=== PATIENT | female | born 1985 | race Caucasian/White ===

== ENCOUNTER 2019-03-30 15:19 | Emergency (ER) | payer BC ==
--- OUTSIDE RECORDS SUMMARY | 2019-03-30 15:25 | XMS REPORT | Continuity of Care Document ---
:1985 External Reference #:[id number] Author Name Sapna Lee PNP-BC, CHRIS, Ibclc Address [facility] [address] [place] [address] Care Team Providers Name Role Phone Sapna Lee PNP-BC, CHRIS, Ibgabriele Care Team Information Threat Analyst Unavailable Sapna Lee PNP-BC, CHRIS, Ibclc Primary Care Physician Unavailable Payers Date Identification Numbers Payment Provider Subscriber Policy Number: [id number] [facility] Nisa Owen PayID: [id number] [address] [address] [place] [address] Expires: 2016 Policy Number: [id number] [employer] Nisa Owen PayID: [id number] [address] [place] [address] Problems Resolved Problems Provider Date Twin Ivon Tovar MD Onset: 12/20/2014 Resolved: 02/23/2015 Normal Ivon Tovar MD Onset: 08/23/2014 Resolved: 02/23/2015 Normal Ivon Tovar MD Onset: 08/23/2014 Resolved: 02/25/2015 Family History Date Family Member(s) Observation Comments Father Unknown Mother autoimmune disorder Social History Type Date Description Comments Sex Unknown Lives With Lives With Children Diet Healthy, Well Balanced Occupation Currently Working ETOH Use Occasionally consumes alcohol Tobacco Use Start: Unknown Patient has never smoked Smoking Status Reviewed: 03/20/19 Patient has never smoked Allergies, Adverse Reactions, Alerts Active Allergies Reaction Severity Comments Date Macrobid 12/16/2014 Cymbalta Moderate 07/05/2018 Medications Active Medications SIG Qnty Indications Ordering Provider Date Amoxicillin 1 by mouth twice 20tabs J01.90 Sapna Lee, 03/20/2019 875mg a day PNP-BC, [employer], Tablets Ibclc Sertraline HCL 1 by mouth every 90tabs F33.1 Sapna Lee, 12/17/2018 25mg day with 50mg PNP-BC, [employer], Tablets tablets Ibclc Sertraline HCL 1 by mouth every 90tabs F33.1 Sapna Lee, 10/22/2018 50mg day with the 25mg PNP-BC, [employer], Tablets Ibclc Flonase Allergy use 2 sprays in Unknown Relief each nostril in 50mcg/Act in the morning Suspension [place] Unknown 0.25-35mg-mcg Tablets Iron Slow Release 1 by mouth bid Unknown 143(45Fe) mg Tablets ER Magnesium 1 by mouth at Unknown 500mg bedtime Capsules Probiotic Daily 1 a day Unknown Capsules Vitamin B Complex 1 by mouth every Unknown day Tablets Vitamin D3 Super 1 by mouth every Unknown Strength day 2000Unit Capsules Zyrtec Allergy 1 tab by mouth 30tabs Clune, 10mg every night Jenniferleigh, Tablets [employer] History Medications Fluticasone Propionate 2 sprays each nare 48gm J30.9 Rosa, 12/17/2018 - once a day Sapna, 03/20/2019 50mcg/Act Suspension PNP-BC, [employer], Ibclc Meclizine HCL 1 by mouth three 30tabs H81.313 Rosa 08/15/2018 - 25mg times a day as Kari Alejo Tablets needed PNP-BC, [employer], Ibclc Gabapentin 1 by mouth at 30caps M79.7 Rosa 08/15/2018 - 100mg Capsules bedtime Sapna, 09/05/2018 PNP-BC, [employer], Ibclc Sertraline HCL 1 by mouth every 30tabs F33.1 Rosa 08/15/2018 - 25mg day Sapna, 09/05/2018 Tablets PNP-BC, [employer], Ibclc Sertraline HCL 1 by mouth every 30tabs F41.9 Rosa, 07/05/2018 - 25mg day Sapna, 07/05/2018 Tablets PNP-BC, [employer], Ibclc Amoxicillin/Clavulanat 1 by mouth twice a 20tabs J01.90 Rosa, 2017 - e Potassium day for 10 days Sapna, 07/15/2018 875-125mg PNP-BC, [employer], Tablets Ibclc Clonidine HCL take one tablet by 120tabs F41.9 Rosa, 07/05/2018 - 0.1mg mouth four times a Sapna, Unknown Tablets day as needed PNP-BC, [employer], maximum daily Ibclc dose=4 Cymbalta 1 by mouth every 60caps Rosa 06/28/2018 - 30mg Caps DR day for 1 week and Sapna, 07/05/2018 Part then 2 by mouth PNP-BC, [employer], each day Ibclc 5-HTP Tryptophan 1 a day Rosa, 06/14/2018 - 50mg Sapna 08/01/2018 Tablets PNP-BC, MANA[employer], Ibclc [employer] 06/14/2018 - 300mg Capsules Sapna, Unknown PNP-BC, MANA[employer], Ibclc Iron (Ferrous Sulfate) 1 by mouth every 30tabs Rosa, 05/30/2018 - day Sapna 07/05/2018 142(45Fe) mg Tablets PNP-BC, [employer], ER Ibclc Fluconazole one by mouth after 1tabs J01.90 Arvind, 12/13/2017 - 150mg Tablets completing [facility] 12/27/2017 antibiotics , [employer] Levofloxacin one by mouth every 5tabs J01.90 Arvind 12/13/2017 - 750mg day x 5 days [facility] 05/15/2018 Tablets , [employer] Trinessa Lo 1 by mouth every 28tabs [place] 01/13/2016 - day MD Ivon 12/13/2017 0.18/0.215/0.25 mg-25 mcg Tablets Nasonex 2 sprays 51gm [place] 01/13/2016 - 50mcg/Act intranasal twice a MD Ivon 05/15/2018 Suspension day No Active Medications Unknown 10/28/2015 - 10/28/2015 Ortho-Cyclen (28) 1 by mouth every 28tabs [place] 10/28/2015 - day MD Ivon 01/13/2016 0.25-35mg-mcg Tablets Diflucan Take 1 Tablet By 1tabs [place] 10/28/2015 - 150mg Tablets Mouth Once Prior MD Ivon 02/13/2016 To Menses No Active Medications La 02/23/2015 - MD Ivon 02/23/2015 No Active Medications La 02/23/2015 - MD Ivon 02/23/2015 No Active Medications Unknown 02/23/2015 - 02/23/2015 Work Nisa may return [place] 02/23/2015 - to work as of MD Ivon 02/23/2015 03/05/15 with no restrictions. No Active Medications Unknown 02/23/2015 - 02/23/2015 Work Nisa may return [place] 02/23/2015 - to work as of MD Ivon 02/23/2015 03/05/15 with no restrictions. No Active Medications Unknown 02/23/2015 - 02/23/2015 One Daily La 12/16/2014 - MD Ivon 02/23/2015 27-0.8mg Tablets Breast Pump breast pump for [place], 12/16/2014 - nursing mother of MD Ivon 02/23/2015 twins. Terconazole 1 applicator every 1units La 10/20/2014 - 0.4% Cream night at bedtime MD Ivon 02/23/2015 Terconazole 1 applicator every 1units La 10/20/2014 - 0.4% Cream night at bedtime MD Ivon 10/28/2015 Plus 1 by mouth every 30tabs La 08/19/2014 - 27-1mg day MD Ivon 02/23/2015 Tablets Plus 1 by mouth every 30tabs [place] 08/19/2014 - 27-1mg day MD Ivon 10/28/2015 Tablets Cyclobenzaprine HCL Franc, - 5mg MD Glo 08/15/2018 Tablets Immunizations CPT Code Status Date Vaccine Lot # [id number] Given 09/07/2018 Influenza Vaccine (Fluzone) Age 3 And Older [id number] Given 10/03/2016 Influenza Virus Vaccine Split Virus Use For Individual 3Yr Older Vital Signs Date Vital Result Comment 03/20/2019 11:00am BP Systolic 100 mmHg BP Diastolic 72 mmHg Heart Rate 86 /min Height 62.5 inches 5'2.50" Weight 204.50 lb BMI (Body Mass Index) 36.8 kg/m2 BSA (Body Surface Area) 1.94 m2 [place] body weight in kilograms 51 kg O2 % BldC Oximetry 97 % 12/17/2018 10:59am BP Systolic 104 mmHg BP Diastolic 64 mmHg Body Temperature 97.5 F Heart Rate 80 /min Respiratory Rate 18 /min Height 62.5 inches 5'2.50" Weight 198.00 lb BMI (Body Mass Index) 35.6 kg/m2 BSA (Body Surface Area) 1.91 m2 [place] body weight in kilograms 51 kg O2 % BldC Oximetry 98 % 09/05/2018 11:27am BP Systolic Sitting Left Arm 110 mmHg BP Diastolic Sitting Left Arm 72 mmHg Body Temperature 98.0 F Heart Rate 90 /min Respiratory Rate 12 /min Height 62.5 inches 5'2.50" Weight 198.00 lb BMI (Body Mass Index) 35.6 kg/m2 BSA (Body Surface Area) 1.91 m2 [place] body weight in kilograms 51 kg O2 % BldC Oximetry 96 % 08/15/2018 11:40am BP Systolic 124 mmHg BP Diastolic 70 mmHg Body Temperature 97.0 F Heart Rate 101 /min Weight 196.00 lb O2 % BldC Oximetry 98 % Pain Level 0 08/01/2018 11:26am BP Systolic Sitting Left Arm 108 mmHg BP Diastolic Sitting Left Arm 68 mmHg Body Temperature 97.8 F Heart Rate 88 /min Weight 199.00 lb O2 % BldC Oximetry 98 % 07/05/2018 3:12pm BP Systolic Sitting Right Arm 126 mmHg BP Diastolic Sitting Right Arm 76 mmHg Body Temperature 98.0 F Heart Rate 90 /min Respiratory Rate 22 /min Height 62 inches 5'2" Weight 202.00 lb BMI (Body Mass Index) 36.9 kg/m2 BSA (Body Surface Area) 1.92 m2 [place] body weight in kilograms 50 kg O2 % BldC Oximetry 98 % 06/14/2018 4:16pm BP Systolic 110 mmHg BP Diastolic 60 mmHg Body Temperature 98.6 F Heart Rate 90 /min Respiratory Rate 16 /min Height 62 inches 5'2" Weight 205.00 lb BMI (Body Mass Index) 37.5 kg/m2 BSA (Body Surface Area) 1.93 m2 [place] body weight in kilograms 50 kg O2 % BldC Oximetry 99 % 05/15/2018 3:27pm BP Systolic Sitting Left Arm 126 mmHg BP Diastolic Sitting Left Arm 78 mmHg Body Temperature 99.1 F Heart Rate 88 /min Height 63 inches 5'3" Weight 201.00 lb BMI (Body Mass Index) 35.6 kg/m2 BSA (Body Surface Area) 1.94 m2 [place] body weight in kilograms 52 kg 12/13/2017 10:59am BP Systolic Sitting Left Arm 120 mmHg BP Diastolic Sitting Left Arm 76 mmHg Body Temperature 100.2 F Heart Rate 80 /min Respiratory Rate 18 /min Height 61 inches 5'1" Weight 208.00 lb BMI (Body Mass Index) 39.3 kg/m2 BSA (Body Surface Area) 1.92 m2 [place] body weight in kilograms 48 kg 01/13/2016 6:09pm BP Systolic 126 mmHg BP Diastolic 74 mmHg Height 61 inches 5'1" Weight 206.00 lb BMI (Body Mass Index) 38.9 kg/m2 BSA (Body Surface Area) 1.91 m2 12/16/2015 11:41am Height 62.6 inches 5'2.60" Weight 204.00 lb BMI (Body Mass Index) 36.6 kg/m2 BSA (Body Surface Area) 1.94 m2 11/18/2015 11:00am Height 62.6 inches 5'2.60" Weight 207.00 lb BMI (Body Mass Index) 37.1 kg/m2 BSA (Body Surface Area) 1.95 m2 10/28/2015 10:43am BP Systolic 130 mmHg BP Diastolic 70 mmHg Height 62.6 inches 5'2.60" Weight 210.25 lb BMI (Body Mass Index) 37.7 kg/m2 BSA (Body Surface Area) 1.97 m2 Last Menstrual Period [id number] 02/23/2015 4:36pm BP Systolic 120 mmHg BP Diastolic 76 mmHg Height 62 inches 5'2" Weight 207.50 lb BMI (Body Mass Index) 37.9 kg/m2 BSA (Body Surface Area) 1.94 m2 Last Menstrual Period [id number] 12/30/2014 11:22am BP Systolic Sitting Left Arm 114 mmHg BP Diastolic Sitting Left Arm 70 mmHg Height 63 inches 5'3" Weight 247.00 lb BMI (Body Mass Index) 43.7 kg/m2 BSA (Body Surface Area) 2.12 m2 12/16/2014 11:17am BP Systolic Sitting Left Arm 116 mmHg BP Diastolic Sitting Left Arm 72 mmHg Height 62.5 inches 5'2.50" Weight 243.00 lb BMI (Body Mass Index) 43.7 kg/m2 BSA (Body Surface Area) 2.09 m2 12/16/2014 11:11am BP Systolic Sitting Left Arm 116 mmHg BP Diastolic Sitting Left Arm 72 mmHg Height 63.5 inches 5'3.50" Weight 244.00 lb BMI (Body Mass Index) 42.5 kg/m2 BSA (Body Surface Area) 2.12 m2 12/09/2014 1:25pm BP Systolic 118 mmHg BP Diastolic 70 mmHg Weight 240.00 lb 10/28/2014 9:45pm BP Systolic 98 mmHg BP Diastolic 72 mmHg Height 62.5 inches 5'2.50" Weight 234.00 lb 10/15/2014 6:26pm BP Systolic 104 mmHg BP Diastolic 78 mmHg Height 62.5 inches 5'2.50" Weight 230.00 lb 09/22/2014 7:21pm BP Systolic 106 mmHg BP Diastolic 70 mmHg Height 62.6 inches 5'2.60" Weight 228.00 lb 08/19/2014 7:19pm BP Systolic 118 mmHg BP Diastolic 78 mmHg Height 62.6 inches 5'2.60" Weight 224.00 lb Results Test Date Facility Test Result H/L Range Note CBC 03/20/2019 [facility] White Blood 8.2 K/uL Normal 3.1-10.7 1 W/Automated [address] Count Diff [place], [place] [id number] [phone] Red Blood Count 4.46 M/uL Normal 3.90-5.40 Hemoglobin 13.2 gm/dL Normal 11.6-15.8 Hematocrit 40.2 % Normal 36.0-46.1 Mean Cell Volume 90.1 fl Normal 80.9-99.0 Mean Corpuscular HGB 29.6 pg Normal 25.9-32.7 Mean Corpuscular HGB Conc 32.8 g/dL Normal 30.8-34.3 Platelet Count 453 K/uL High 155-360 Red Cell Distri Width SD 43.6 fl Normal 36-47 Red Cell Distri Width %CV 13.2 % Normal 11.7-14.4 Mean Platelet Volume 10.3 fl Normal 8.9-12.4 Neut% 67.4 % Normal 40.4-72.8 Lymph % 25.7 % Normal 20.0-42.0 [place] % 3.5 % Low 4.3-13.2 Eo% 2.3 % Normal 0.0-6.6 Bas% 0.6 % Normal 0.0-1.1 Immature Grans 0.5 % Normal 0.0-5.0 NRBC % 0.0 /100WBC < 10/ 100 WBC Neut# 5.53 K/uL Normal 1.8-7.0 Lymph # 2.11 K/uL Normal 1.0-4.0 [place] # 0.29 K/uL Low 0.3-0.9 Eos # 0.19 K/uL Normal 0.0-0.5 Baso # 0.05 K/uL Normal 0.0-0.1 Immature Grans Absolute 0.04 K/uL NRBC # 0.00 K/uL Iron-Tibc-%Sat 03/20/2019 [facility] Serum Iron 114 g/dL Normal 50-170 [address] [place], [place] [id number] [phone] Total Iron Binding Capacity 347 g/dL Normal 250-450 Transferrin %Saturation 33 % Normal 12-57 CBC W/Automated 08/15/2018 [facility] White Blood 9.0 K/uL Normal 3.1-10.[address] Count [place], [place] [id number] [phone] Red Blood Count 4.70 M/uL Normal 3.90-5.40 Hemoglobin 11.2 gm/dL Low 11.6-15.8 Hematocrit 36.3 % Normal 36.0-46.1 Mean Cell Volume 77.2 fl Low 80.9-99.0 Mean Corpuscular HGB 23.8 pg Low 25.9-32.7 Mean Corpuscular HGB Conc 30.9 g/dL Normal 30.8-34.3 Platelet Count 376 K/uL High 155-360 Red Cell Distri Width SD 49.5 fl High 3-47 Red Cell Distri Width %CV 18.0 % High 11.7-14.4 Mean Platelet Volume 11.8 fL Normal 8.9-12.4 Neut% 70.9 % Normal 40.4-72.8 Lymph % 24.2 % Normal 20.0-42.0 [place] % 3.3 % Low 4.3-13.2 Eo% 1.3 % Normal 0.0-6.6 Bas% 0.3 % Normal 0.0-1.1 Neut# 6.35 K/uL Normal 1.8-7.0 Lymph # 2.17 K/uL Normal 1.0-4.0 [place] # 0.30 K/uL Normal 0.3-0.9 Eos # 0.12 K/uL Normal 0.0-0.5 Baso # 0.03 K/uL Normal 0.0-0.1 Iron-Tibc-%Sat 08/15/2018 [facility] Serum Iron 16 g/dL Low 50-170 [address] [place] [address] [phone] Total Iron Binding Capacity 372 g/dL Normal 250-450 Transferrin %Saturation 4 % Low 12-57 Ebv Acute 08/15/2018 [facility] Ebv AB Vca,Igm <36.0 U/mL 0.0-35.9 3 Infection [address] [facility] Antibodies [place], [place] [id number] [phone] Ebv Early Antigen AB, IgG <9.0 U/mL 0.0-8.9 4 Ebv AB Vca,Igg <18.0 U/mL 0.0-17.9 5 Ebv Nuclear Antigen AB, Igg <18.0 U/mL 0.0-17.9 6 Ebv Interpretation (SEE NOTE) 7 Urine Culture 06/14/2018 [facility] Urine Culture URETHRAL RUPERT [address] [place] [address] [phone] Quantity 10,000 - 50,000 <SEE NOTE> 9 Ua Routine 06/14/2018 [facility] Ua Specific [place] 1.030 1.010-1.030 Ua PH 5.0 Low 6.5-7.5 Ua Color yellow Yellow Ua Appera clear Ua WBC negative Ua Protein trace Negative Ua Glucose negative Negative Ua Ketones negative Negative Ua Bilirubin small Negative Ua Urobilinogen 0.2 0.2 - 1.0 E.U./dL Ua Nitrite negative Negative Ua Occult Blood negative Serum or plasma 05/15/2018 N2N/CCD Import Serum or plasma 13 Low 15-37 aspartate aspartate aminotransferase aminotransferase measure measurement (enzymatic activity/volume) Serum or plasma 05/15/2018 N2N/CCD Import Serum or plasma 78 45-117 alkaline phosphatase alkaline phosphatase measurement ( measurement (enzymatic activity/volume) Serum or plasma 05/15/2018 N2N/CCD Import Serum or plasma 3.9 3.4-5. albumin measurement albumin measurement 0 (mass/volume) (mass/volume) Serum or plasma 05/15/2018 N2N/CCD Import Serum or plasma 39.9 30.0-1 25-hydroxyvitamin D 25-hydroxyvitamin D 00.0 measurement (m measurement (mass/volume) Serum nuclear 05/15/2018 N2N/CCD Import Serum nuclear Negative . antibody titer by antibody titer by immunofluorescence immunofluorescence Serum carbon dioxide 05/15/2018 N2N/CCD Import Serum carbon dioxide 28 21-32 measurement measurement RDW RBC Auto-Rto 05/15/2018 N2N/CCD Import RDW RBC Auto-Rto 16.3 High 11.7-1 4.4 RDW RBC Auto 05/15/2018 N2N/CCD Import RDW RBC Auto 44.6 3-47 Potassium SerPl-sCnc 05/15/2018 N2N/CCD Import Potassium SerPl-sCnc 3.7 3.5-5. 1 Neutrophils/leuk NFr 05/15/2018 N2N/CCD Import Neutrophils/leuk NFr 66.9 40.4-7 Bld Auto Bld Auto 2.8 Neutrophils # Bld 05/15/2018 N2N/CCD Import Neutrophils # Bld 5.87 1.8- 7. Auto Auto 0 Monocytes/leuk NFr 05/15/2018 N2N/CCD Import Monocytes/leuk NFr 5.0 4.3- 13 Bld Auto Bld Auto .2 Lymphocytes/leuk NFr 05/15/2018 N2N/CCD Import Lymphocytes/leuk NFr 26.5 20.0-4 Bld Auto Bld Auto 2.0 Hgb A1c MFr Bld 05/15/2018 N2N/CCD Import Hgb A1c MFr Bld 5.2 4.2-6. 3 Serum or plasma 05/15/2018 N2N/CCD Import Serum or plasma 8.5 8.5-10 calcium measurement calcium measurement .1 (mass/volume) (mass/volume) Serum or plasma 05/15/2018 N2N/CCD Import Serum or plasma 55 >40 cholesterol in HDL cholesterol in HDL measurement (ma measurement (mass/volume) Serum or plasma 05/15/2018 N2N/CCD Import Serum or plasma 68 < 100 cholesterol in LDL cholesterol in LDL measurement by measurement by calculation (mass/volume) Serum or plasma 05/15/2018 N2N/CCD Import Serum or plasma 138 <200 cholesterol cholesterol measurement measurement (mass/volu (mass/volume) Serum or plasma 05/15/2018 N2N/CCD Import Serum or plasma 0.8 0.6-1. creatinine creatinine 3 measurement measurement (mass/volum (mass/volume) Serum or plasma 05/15/2018 N2N/CCD Import Serum or plasma 73 Low 74-106 glucose measurement glucose measurement (mass/volume) (mass/volume) Serum or plasma 05/15/2018 N2N/CCD Import Serum or plasma 7.6 6.4-8. protein measurement protein measurement 2 (mass/volume) (mass/volume) Serum or plasma 05/15/2018 N2N/CCD Import Serum or plasma 0.1 Low 0.2-1. total bilirubin total bilirubin 0 measurement (mass/ measurement (mass/volume) Serum or plasma 05/15/2018 N2N/CCD Import Serum or plasma 74 <150 triglyceride triglyceride measurement measurement (mass/vol (mass/volume) Serum or plasma urea 05/15/2018 N2N/CCD Import Serum or plasma urea 14 7 -18 nitrogen measurement nitrogen measurement (mass/vo (mass/volume) Serum or plasma urea 05/15/2018 N2N/CCD Import Serum or plasma urea 17.5 nitrogen/creatinine nitrogen/creatinine mass rati mass ratio Serum or plasma 05/15/2018 N2N/CCD Import Serum or plasma 615 193-98 vitamin B12 vitamin B12 6 measurement measurement (mass/volu (mass/volume) Serum sodium 05/15/2018 N2N/CCD Import Serum sodium 142 136-14 measurement measurement 5 TSH SerPl-aCnc 05/15/2018 N2N/CCD Import TSH SerPl-aCnc 0.84 0.30-4 .20 CBC W/Automated Diff 05/15/2018 [facility] Red Cell Distri 44.6 fl Normal 3-[address] [place] [address] [phone] Neut% 66.9 % Normal 40.4-72.8 Lymph % 26.5 % Normal 20.0-42.0 [place] % 5.0 % Normal 4.3-13.2 Eo% 1.3 % Normal 0.0-6.6 Bas% 0.3 % Normal 0.0-1.1 Neut# 5.87 K/uL Normal 1.8-7.0 Lymph # 2.33 K/uL Normal 1.0-4.0 [place] # 0.44 K/uL Normal 0.3-0.9 Eos # 0.11 K/uL Normal 0.0-0.5 Baso # 0.03 K/uL Normal 0.0-0.1 Comprehensive Metabolic 05/15/2018 [facility] Glucose 73 mg/dL Low 74-106 Panel [address] [place], [place] [id number] [phone] BUN 14 mg/dL Normal 7-18 Creatinine 0.8 mg/dL Normal 0.6-1.3 Glom Filtration Rate, Estimate >60 mL/min >60 If >60 mL/min >60 11 BUN/Creat 17.5 ratio Sodium 142 mmol/L Normal 136-145 Potassium 3.7 mmol/L Normal 3.5-5.1 Chloride 106 mmol/L Normal 98-107 Carbon Dioxide 28 mmol/L Normal 21-32 Anion Gap 8 mEq/L Normal 8-16 Calcium 8.5 mg/dL Normal 8.5-10.1 Total Protein 7.6 g/dL Normal 6.4-8.2 Albumin 3.9 g/dL Normal 3.4-5.0 Globulin 3.7 g/dL Normal 1.9-4.3 Alb/Glob 1.1 ratio Bilirubin,Total 0.1 mg/dL Low 0.2-1.0 Sgot/Ast 13 U/L Low 15-37 12 SGPT/Alt 27 U/L Normal 12-78 Alkaline Phosphatase 78 U/L Normal 45-117 Rheumatoid 05/15/2018 [facility] Sedimentation 20 mm/hr Normal 0-20 13 Panel (CRM) [address] [place] [address] [phone] Uric Acid 4.1 mg/dL Normal 2.6-6.0 Rheumatoid Factor Screen < 10.0 IU/mL Normal 0.0-15.0 C-Reactive Protein,Quant 23.2 mg/L High <3.0 Antinuclear Antibodies, Ifa Negative . 14 CBC 05/15/2018 [facility] White Blood Count 8.8 K/uL Normal 3.1-10.[address] [place] [address] [phone] Red Blood Count 4.68 M/uL Normal 3.90-5.40 Hemoglobin 11.2 gm/dL Low 11.6-15.8 Hematocrit 36.0 % Normal 36.0-46.1 Mean Cell Volume 76.9 fl Low 80.9-99.0 Mean Corpuscular HGB 23.9 pg Low 25.9-32.7 Mean Corpuscular HGB Conc 31.1 g/dL Normal 30.8-34.3 Platelet Count 403 K/uL High 155-360 Red Cell Distri Width %CV 16.3 % High 11.7-14.4 Mean Platelet Volume 11.2 fL Normal 8.9-12.4 Systemic Lupus 05/15/2018 [facility] Ra Latex <10.0 IU/mL 0.0-13.9 Erythem. Profil [address] [place] [address] [phone] Anti-Dna Antibody ([place]) <1 IU/mL 0-9 15 SM Antibody <0.2 AI 0.0-0.9 TOBACCO FLAVORER Antibody <0.2 AI 0.0-0.9 Sjogrens Antibodies (Ssa) <0.2 AI 0.0-0.9 Antichromatin Antibodies <0.2 AI 0.0-0.9 Sjogrens Antibodies (SSB) <0.2 AI 0.0-0.9 Laboratory test 05/15/2018 [facility] TSH Reflex FT4 0.84 Normal 0.30-4.[address] and/or FT3 uIU/[place] [address] [phone] Glycohemoglobin 05/15/2018 [facility] Glycohemoglobin 5.2 % Normal 4.2-6.[address] (A1c) [place] [address] [phone] eAG 103 mg/dL LDL Cholesterol Profile 05/15/2018 [facility] Cholesterol 138 mg/dL <[address] [place] [address] [phone] Triglycerides 74 mg/dL <150 18 HDL Cholesterol 55 mg/dL >40 19 LDL-Cholesterol 68 mg/dL < 100 20 Vitamin B12 And 05/15/2018 [facility] Vitamin B12 615 pg/mL Normal 193-[address] [place], [place] [address] [phone] Folic Acid > 20.0 ng/mL High 3.1-17.5 Laboratory test 05/15/2018 [facility] Vitamin 39.9 30.0-100.[address] D,25-Hydroxy ng/mL [place], [place] [address] [phone] Lyme Total AB/Reflex To WB < 0.91 ISR 0.00-0.90 22 Alt SerPl-cCnc 05/15/2018 N2N/CCD Import Alt SerPl-cCnc 27 12-78 Albumin/Glob SerPl 05/15/2018 N2N/CCD Import Albumin/Glob SerPl 1.1 Anion Gap 05/15/2018 N2N/CCD Import Anion Gap 8 8-16 SerPl-sCnc SerPl-sCnc Automated blood 05/15/2018 N2N/CCD Import Automated blood 0.03 0.0-0.1 basophil count basophil count (count/volume) (count/volume) Automated blood 05/15/2018 N2N/CCD Import Automated blood 0.11 0.0-0.5 eosinophil count eosinophil count Automated blood 05/15/2018 N2N/CCD Import Automated blood 36.0 36.0- 46.1 hematocrit (volume hematocrit (volume fraction) fraction) Eosinophil/leuk NFr 05/15/2018 N2N/CCD Import Eosinophil/leuk 1.3 0.0- 6.6 Bld Auto NFr Bld Auto Erythrocyte 05/15/2018 N2N/CCD Import Erythrocyte 20 0-20 sedimentation rate sedimentation rate by 15 minute readin by 15 minute reading Globulin Ser 05/15/2018 N2N/CCD Import Globulin Ser 3.7 1.9-4.3 Calc-mCnc Calc-mCnc Chloride SerPl-sCnc 05/15/2018 N2N/CCD Import Chloride 106 98-107 SerPl-sCnc Blood monocytes 05/15/2018 N2N/CCD Import Blood monocytes 0.44 0.3-0.9 automated count automated count (number/volume) (number/volume) Blood leukocytes 05/15/2018 N2N/CCD Import Blood leukocytes 8.8 3.1- 10.7 automated count automated count (number/volume) (number/volume) Blood hemoglobin 05/15/2018 N2N/CCD Import Blood hemoglobin 11.2 Low 11.6 -15.8 measurement measurement (mass/volume) (mass/volume) Blood estimated 05/15/2018 N2N/CCD Import Blood estimated 103 average glucose average glucose determination by e determination by estimation from glycated hemoglobin (mass/volume) Blood erythrocytes 05/15/2018 N2N/CCD Import Blood erythrocytes 4.68 3.90-5.40 automated count automated count (number/volume) (number/volume) Basophils/leuk NFr 05/15/2018 N2N/CCD Import Basophils/leuk NFr 0.3 0.0- 1.1 Bld Auto Bld Auto Automated 05/15/2018 N2N/CCD Import Automated 76.9 Low 80.9-99.0 erythrocyte mean erythrocyte mean corpuscular volume corpuscular volume Automated 05/15/2018 N2N/CCD Import Automated 31.1 30.8-34.3 erythrocyte mean erythrocyte mean corpuscular corpuscular hemoglobin hemoglobin concentration measurement (mass/volume) Automated 05/15/2018 N2N/CCD Import Automated 23.9 Low 25.9-32.7 erythrocyte mean erythrocyte mean corpuscular corpuscular hemoglobin hemoglobin (mass per erythrocyte) Automated blood 05/15/2018 N2N/CCD Import Automated blood 11.2 8.9-12.4 platelet mean platelet mean volume measurement volume measurement Automated blood 05/15/2018 N2N/CCD Import Automated blood 403 High 155- 360 platelet count platelet count Automated blood 05/15/2018 N2N/CCD Import Automated blood 2.33 1.0-4.0 lymphocyte count lymphocyte count (number/volume) (number/volume) CBC W/Automated 10/14/2015 [facility] White Blood Count 9.8 K/uL 3.1-10.7 Diff [address] [place] [address] [phone] Red Blood Count 4.85 M/uL 3.90-5.40 Hemoglobin 12.8 gm/dL 11.6-15.8 Hematocrit 40.6 % 36.0-46.1 Mean Cell Volume 83.7 fl 80.9-99.0 Mean Corpuscular HGB 26.4 pg 25.9-32.7 Mean Corpuscular HGB Conc 31.5 g/dL 30.8-34.3 Platelet Count 375 K/uL High 155-360 Red Cell Distri Width SD 43.0 fl 3-47 Red Cell Distri Width %CV 14.4 % 11.7-14.4 Mean Platelet Volume 11.3 fL 8.9-12.4 Neut% 68.2 % 40.4-72.8 Lymph % 25.8 % 17.0-46.1 [place] % 4.6 % 4.3-13.2 Eo% 1.2 % 0.0-6.6 Bas% 0.2 % 0.0-1.1 Neut# 6.67 K/uL 1.8-7.0 Lymph # 2.52 K/uL 1.8-7.0 [place] # 0.45 K/uL 0.3-0.9 Eos # 0.12 K/uL 0.0-0.5 Baso # 0.02 K/uL 0.0-0.1 Laboratory test 10/14/2015 [facility] Thyroid Stim 1.28 uIU/mL 0.36-3.74 finding [address] [facility] [place] [address] [phone] Basic Metabolic 10/14/2015 [facility] Glucose 91 mg/dL 74-106 Panel [address] [place] [address] [phone] BUN 13 mg/dL 7-18 Creatinine 0.7 mg/dL 0.6-1.3 Glom Filtration Rate, Estimate >60 mL/min >60 If >60 mL/min >60 23 BUN/Creat 18.5 ratio Sodium 141 mmol/L 136-145 Potassium 4.0 mmol/L 3.5-5.1 Chloride 106 mmol/L 98-107 Carbon Dioxide 27 mmol/L 21-32 Anion Gap 8 mEq/L 8-16 Calcium 8.8 mg/dL 8.5-10.1 Liver Function Tests 10/14/2015 [facility] Total Protein 7.9 g/dL 6.4-8.2 [address] [place] [address] [phone] Albumin 3.9 g/dL 3.4-5.0 Globulin 4.0 g/dL 1.9-4.3 Alb/Glob 1.0 ratio Bilirubin,Total 0.4 mg/dL 0.2-1.0 Bilirubin,Direct < 0.1 mg/dL 0.0-0.2 Bilirubin,Indirect 0.3 mg/dL 0.0-0.9 Sgot/Ast 15 U/L 15-37 SGPT/Alt 33 U/L 12-78 Alkaline Phosphatase 91 U/L 45-117 CBC 01/09/2015 [facility] White Blood Count 10.2 K/uL 3.1-10.7 [address] [place] [address] [phone] Red Blood Count 3.73 M/uL Low 3.90-5.40 Hemoglobin 10.4 gm/dL Low 11.6-15.8 Hematocrit 32.5 % Low 36.0-46.1 Mean Cell Volume 87.1 fl 80.9-99.0 Mean Corpuscular HGB 27.9 pg 25.9-32.7 Mean Corpuscular HGB Conc 32.0 g/dL 30.8-34.3 Platelet Count 140 K/uL Low 155-360 Red Cell Distri Width %CV 15.8 % High 11.7-14.4 Mean Platelet Volume 12.3 fL 8.9-12.4 Laboratory test 01/06/2015 [facility] Rapid Plasma NONREACTIVE [address] [place] [address] [phone] Type And Screen 01/06/2015 [facility] Patient Blood O POS [address] [place] [address] [phone] Antibody Screen Negative Negative CBC 01/06/2015 [facility] White Blood Count 7.7 K/uL 3.1-10.[address] [place] [address] [phone] Red Blood Count 4.28 M/uL 3.90-5.40 Hemoglobin 12.1 gm/dL 11.6-15.8 Hematocrit 37.2 % 36.0-46.1 Mean Cell Volume 86.9 fl 80.9-99.0 Mean Corpuscular HGB 28.3 pg 25.9-32.7 Mean Corpuscular HGB Conc 32.5 g/dL 30.8-34.3 Platelet Count 181 K/uL 155-360 Red Cell Distri Width %CV 15.6 % High 11.7-14.4 Mean Platelet Volume 12.6 fL High 8.9-12.4 Laboratory test finding 10/28/2014 N2N/CCD Import Urine Culture See Note 25 Genital Culture W/ Gram 10/15/2014 N2N/CCD Import Genital Culture See Note 26 Stain Gram Stain See Note 27 Rubella IgG 10/15/2014 N2N/CCD Import Rubella IgG Reactive Reactive Antibody Antibody Rubella IgG Iu/ml 13.9 IU/mL >=10.0 28 Type And Screen 10/15/2014 N2N/CCD Import Antibody Screen Negative Negative Patient Blood Type O Pos Laboratory test 10/15/2014 N2N/CCD Import ThinPrep Pap: See Note 29 finding Cervix/Endocx Chlamydia/GC Dori 10/15/2014 N2N/CCD Import Chlamydia Negative Negative Trachomatis, Dori Neisseria Gonorrhoeae, Dori Negative Negative Please note: See Note 30 Laboratory test 10/15/2014 N2N/CCD Import 1 HR Glucose,Post 84 mg/dL - 138 31 finding Glucola 1 Hour Urine Glucose Negative % Negative 1 Hour Urine Ketone Trace Negative Antibody Detection See Note 32 Hepatitis B Surface Antigen Nonreactive Nonreactive 33 Lead,Blood (Adult) <1 ug/dL 0-19 34 Rapid Plasma Reagin Nonreactive Nonreactive 35 Varicella-Zoster Virus IgG Ab <135 Immune >165 ind Low 36 Laboratory test finding 10/13/2014 N2N/CCD Import Bas% 0.1 % 0.0-1.1 Baso # 0.01 K/uL 0.0-0.1 Eo% 0.2 % 0.0-6.6 Eos # 0.02 K/uL 0.0-0.5 Hematocrit 37.4 % 36.0-46.1 Hemoglobin 12.0 gm/dL 11.6-15.8 Lipase 64 U/L Low 73-393 Lymph # 0.84 K/uL 0.8-3.4 Lymph % 7.8 % Low 17.0-46.1 Mean Cell Volume 87.2 fl 80.9-99.0 Mean Corpuscular HGB 28.0 pg 25.9-32.7 Mean Corpuscular HGB Conc 32.1 g/dL 30.8-34.3 Mean Platelet Volume 10.7 fL 8.9-12.4 [place] # 0.28 K/uL Low 0.3-0.9 [place] % 2.6 % Low 4.3-13.2 Neut# 9.67 K/uL High 1.0-7.0 Neut% 89.3 % High 40.4-72.8 Platelet Count 303 K/uL 155-360 Red Blood Count 4.29 M/uL 3.90-5.40 Red Cell Distri Width %CV 16.2 % High 11.7-14.4 Red Cell Distri Width SD 50.3 fl High 3-47 White Blood Count 10.8 K/uL High 3.1-10.7 Comprehensive Metabolic Panel 10/13/2014 N2N/CCD Import Alb/Glob 0.6 ratio Albumin 2.4 g/dL Low 3.4-5.0 Alkaline Phosphatase 92 U/L 45-117 Anion Gap 17 mEq/L High 8-16 BUN 8 mg/dL 7-18 BUN/Creat 13.3 ratio Bilirubin,Total 0.4 mg/dL 0.2-1.0 Calcium 8.5 mg/dL 8.5-10.1 Carbon Dioxide 18 mmol/L Low 21-32 Chloride 108 mmol/L High 98-107 Creatinine 0.6 mg/dL 0.6-1.3 Globulin 4.3 g/dL 1.9-4.3 Glom Filtration Rate, Estimate >60 mL/min >60 Glucose 78 mg/dL 74-106 If >60 mL/min >60 37 Potassium 3.7 mmol/L 3.5-5.1 SGPT/Alt 14 U/L 12-78 Sgot/Ast 15 U/L 15-37 Sodium 139 mmol/L 136-145 Total Protein 6.7 g/dL 6.4-8.2 Laboratory test 10/13/2014 N2N/CCD Import Culture If Indicated See Note 38 finding Comment Urine Culture See Note 39 Urine Screen See Note 40 Urinalysis With 10/13/2014 N2N/CCD Import Urine Bacteria Moderate None High Microscopic Seen Urine Bilirubin - Dipstick Small High Negative Urine Blood Negative Negative Urine Clarity SL Cloudy Clear Urine Color Straw Yellow Urine Epithelial Cells Moderate None Seen /lpf 41 Urine Glucose - Dipstick Negative mg/dL Negative Urine Ketone >=80 mg/dL High Negative Urine Leuk Esterase Moderate High Negative Urine Mucus Small None Seen Urine Nitrite - Dipstick Negative Negative Urine PH 6.0 Low 6.5-7.5 Urine Protein - Dipstick Trace mg/dL Negative Urine RBC None Seen rbc/hpf 0-7 Urine Specific [place] >=1.030 1.010-1.030 Urine Urobilinogen - Dipstick 0.2 E.U./dL 0.2-1.0 Urine WBC 30-50 wbc/hpf High 0-7 1 D64.9 2 R53.83 3 Negative <36.0 Equivocal 36.0 - 43.9 Positive >43.9 4 Negative < 9.0 Equivocal 9.0 - 10.9 Positive >10.9 5 Negative <18.0 Equivocal 18.0 - 21.9 Positive >21.9 6 Negative <18.0 Equivocal 18.0 - 21.9 Positive >21.9 7 EBV Interpretation Chart Interpretation EBV-IgM EA(D)-IgG VCA-IgG EBNA-IgG EBV Seronegative - - - - Early Phase + - - - Acute Primary + +or- + - Infection Convalescence/Past - +or- + + Infection Reactivated +or- + + + Infection + Antibody Present - Antibody Absent Performed at: [facility] [employer] [id number] Urban Sociologist: Taylor Christine MD, Phone: [phone] R30.0 9 10,000 - 50,000 CFU/mL 10 R53.83 Z13.1 Z13.220 Z00.01 11 Note: Persistent reduction for 3 months or more in an eGFR <60 mL/min/1.73 m2 defines CKD. Patients with eGFR values >/=60 mL/min/1.73 m2 may also have CKD if evidence of persistent proteinuria is present. The original MDRD equation for estimated GFR is not valid for patients less than 18 years of age. Additional information may be found at www.kdoqi.org. 12 Values below the stated reference ranges of AST and ALT can be seen in normal populations. Clinical correlation is suggested. 13 Method: Sediplast Modified Westergren 14 Negative <1:80 Borderline 1:80 Positive >1:80 Performed at: [facility] [employer] [id number] Urban Sociologist: Taylor Christine MD, Phone: [phone] Negative <5 Equivocal 5 - 9 Positive >9 16 Elevated levels of HbA1c suggest the need for more aggressive treatment of glycemia. The [place] Diabetes Association recommends that a primary goal of therapy should be a HbA1c of <7% and that physicians should re-evaluate the treatment regimen in patients with HbA1c values consistently >8%. 17 Reference Guidelines*: Desirable: ........... < 200 mg/dL Borderline High: ..... 200-239 mg/dL High: ................ >=240 mg/dL * The National Cholesterol Education Program (NCEP) 18 Reference Guidelines*: Normal: ............. < 150 mg/dL Borderline High: .... 150-199 mg/dL High: ............... 200-499 mg/dL Very High: .......... > 500 mg/dL * Source: National Cholesterol Education Program (NCEP) 19 Reference Guidelines*: Low HDL: ..... < 40 mg/dL Normal: ..... 40-60 mg/dL Desirable: ... > 60 mg/dL *The National Cholesterol Education Program(NCEP) 20 Reference Guidelines*: Optimal:........... <100 mg/dL Near Optimal....... 100-129 mg/dL Borderline High.... 130-159 mg/dL High............... 160-189 mg/dL Very High.......... >=190 mg/dL * Source: National Cholesterol Education Program (NCEP) 21 Vitamin D deficiency has been defined by the [place] of Medicine and an Endocrine Society practice guideline as a level of serum 25-OH vitamin D less than 20 ng/mL (1,2). The Endocrine Society went on to further define vitamin D insufficiency as a level between 21 and 29 ng/mL (2). 1. IOM ([place] of Medicine). 2010. Dietary reference intakes for calcium and D. [place]: The National Academies Press. 2. Keny MF, [place], Harpreet NAYAK, et al. Evaluation, treatment, and prevention of vitamin D deficiency: an Endocrine Society clinical practice guideline. JCEM. 2011 Mar; 96(7):1911-30. Performed at: RN - [facility] [address] [id number] Urban Sociologist: Taylor Christine MD, Phone: [phone] Negative <0.91 Equivocal 0.91 - 1.09 Positive >1.09 23 Note: Persistent reduction for 3 months or more in an eGFR <60 mL/min/1.73 m2 defines CKD. Patients with eGFR values >/=60 mL/min/1.73 m2 may also have CKD if evidence of persistent proteinuria is present. The original MDRD equation for estimated GFR is not valid for patients less than 18 years of age. Additional information may be found at www.kdoqi.org. 24 PENDING; TEST PERFORMED ON MONDAYS AND THURSDAYS 25 Organism 1 ! MIXED URETHRAL RUPERT Quantity ! 10,000 - 50,000 CFU/mL SPECIMEN IS A MIX OF GRAM POSITIVE ORGANISMS CONSISTENT WITH SKIN/VAGINAL CONTAMINATION. SUGGEST REPEAT SPECIMEN IF CLINICALLY INDICATED. 26 GENITAL RUPERT 27 GRAM STAIN ! GRAM STAIN INDICATES NORMAL GENITAL RUPERT ! FEW GR POS. BACILLI SUGGESTIVE OF LACTOBACILLUS SP. ! VERY FEW GRAM POSITIVE COCCI ! VERY FEW WHITE BLOOD CELLS 28 Values >=10.0 IU/mL are positive for IgG antibodies to rubella virus and are considered IMMUNE. 29 CYTOLOGY SCREENER Screened by: Gladys MAYNARD(ASCP) PAP: FINAL REPORT SPECIMEN ADEQUACY: SPECIMEN SATISFACTORY FOR INTERPRETATION ABSENCE OF TRANSFORMATION ZONE COMPONENT INTERPRETATION: NEGATIVE FOR INTRAEPITHELIAL LESION OR MALIGNANCY COMMENT: THINPREP PREPARED PAP SLIDE # Prepared in the Cytology laboratory from the ThinPrep sample is 1 ThinPrep smear. PAP ACCESSI QUESTIONNAIRE 09/13 PERTINENT CLINICAL HISTORY FOR PAP (INSIDE SALES TRAINER) CYTOLOGY (Check all that apply): ? Y Post ? Menopause? LMP date: Last Pap: at [facility]? Y Abnormal Pap? N If Yes, date: Post Hysterectomy? Is cervix present? Y If patient had related surgical procedure: Related Therapy: Significant Clinical History: V91.03 ===== DISCLAIMER: The Pap smear is a screening test and not a diagnostic procedure. False negative and false positive results can and do occur for a number of reasons. Regular screening provides an aid in detecting treatable cervical abnormalities, but should not be used as the only means for detecting cervical dysplasia and carcinoma. ----- Signed Electronically signed GLADYS VELIZ Dena 10/16/14 1337 ----- 30 Acceptable specimens for this test are male urethral swab, endocervical swab and liquid based pap specimens, vaginal swabs in APTIMA transports and first void urine. See online Directory of Services for test number for rectal and pharyngeal specimens. Performed at: - [facility] [id number] Urban Sociologist: Taylor Christine MD, Phone: [phone] POST GLUCOLA 32 No reportable results 33 HBsAg not detected; does not exclude the possibility of exposure to or early acute infections with HBV. 34 Environmental Exposure: WHO Recommendation <20 Occupational Exposure: OSHA Lead Std 40 JOSE 30 Detection Limit=1 35 PENDING; TEST PERFORMED ON MONDAYS AND THURSDAYS 36 Negative <135 Equivocal 135 - 165 Positive >165 A positive result generally indicates exposure to the pathogen or administration of specific immunoglobulins, but it is not indication of active infection or stage of disease. 37 Note: Persistent reduction for 3 months or more in an eGFR <60 mL/min/1.73 m2 defines CKD. Patients with eGFR values >/=60 mL/min/1.73 m2 may also have CKD if evidence of persistent proteinuria is present. The original MDRD equation for estimated GFR is not valid for patients less than 18 years of age. Additional information may be found at www.kdoqi.org. 38 CULTURE TO FOLLOW 39 Organism 1 ! MIXED URETHRAL RUPERT Quantity ! > 100,000 CFU/mL SPECIMEN IS A MIX OF GRAM POSITIVE ORGANISMS CONSISTENT WITH SKIN/VAGINAL CONTAMINATION. SUGGEST REPEAT SPECIMEN IF CLINICALLY INDICATED. 40 10/13/14 [facility] Deleted by [facility]ACOM 41 POSSIBLE UROGENITAL CONTAMINATION. Procedures Date Code Description Status 12/17/2018 51603 Brief Emotional/Behav Assessment W/ Scoring Doc Per Completed Standard Inst 09/05/2018 19331 Brief Emotional/Behav Assessment W/ Scoring Doc Per Completed Standard Inst 08/01/2018 79854 Brief Emotional/Behav Assessment W/ Scoring Doc Per Completed Standard Inst 06/14/2018 47345 Brief Emotional/Behav Assessment W/ Scoring Doc Per Completed Standard Inst 05/15/2018 65726 Brief Emotional/Behav Assessment W/ Scoring Doc Per Completed Standard [facility] 01/08/2015 41325 Section [facility] Completed 01/08/2015 66499 Anesthesia, Delivery Completed 12/30/2014 15314 For Antepartum 4-6 Total Office Visits Completed 12/16/2014 67010 Non-Stress Test (NST) Completed 12/16/2014 34486 For Antepartum 4-6 Total Office Visits Completed 12/09/2014 31219 For Antepartum 4-6 Total Office Visits Completed 11/11/2014 30310 Antepartum 7 Or More Total Office Visit Completed 11/11/2014 32110 For Antepartum 4-6 Total Office Visits Completed 11/06/2014 28511 Antepartum 7 Or More Total Office Visit Completed 10/28/2014 36265 Antepartum 7 Or More Total Office Visit Completed 09/22/2014 05861 Antepartum 7 Or More Total Office Visit Completed 11/08/2008 75536 Vaginal Delivery [facility] Completed Encounters Type Date Location Provider Dx Diagnosis Office Visit 03/20/2019 Family Sapna Woo, F41.9 Anxiety disorder, 11:00a Diego CARNEY PNP-BC, [employer], unspecified [facility] J01.90 Acute sinusitis, unspecified D64.9 Anemia, unspecified Office Visit 12/17/2018 11:00a Sapna Malik, F41.9 Anxiety disorder, Diego CARNEY PNP-BC, MANA[employer], unspecified [facility] M79.7 Fibromyalgia J30.9 Allergic rhinitis, unspecified F33.1 Major depressive disorder, recurrent, moderate Office Visit 09/05/2018 11:30a [facility] Sapna Lee, M79.[address] PNP-BC, MANAGER [employer], [facility] F41.9 Anxiety disorder, unspecified H81.313 Aural vertigo, bilateral Office Visit 08/15/2018 11:30a [facility] Sapna Lee, H81.313 Aural vertigo, [address] RD PNP-BC, MANAGER [employer], bilateral [facility] F41.9 Anxiety disorder, unspecified M79.7 Fibromyalgia F33.1 Major depressive disorder, recurrent, moderate R53.83 Other fatigue Office Visit 08/01/2018 11:30a [facility] Sapna Lee, M62.[address] PNP-BC, MANAGER [employer], (generalized) [facility] H81.313 Aural vertigo, bilateral G50.0 Trigeminal neuralgia F41.9 Anxiety disorder, unspecified Office Visit 07/05/2018 3:15p [facility] Sapna Lee, F41.9 Anxiety disorder, [address] RD PNP-BC, MANAGER [employer], unspecified [facility] J01.90 Acute sinusitis, unspecified Office Visit 06/14/2018 3:30p [facility] Sapna Lee, R53.[address] PNP-BC, MA[employer], [facility] K58.2 Mixed irritable bowel syndrome R30.0 Dysuria F41.9 Anxiety disorder, unspecified Office Visit 12/13/2017 [facility] Arvind J01.90 Acute sinusitis, 11:00a Medicine CHRIS Savage unspecified RD Office Visit 01/13/2016 Ivon Williamson, R51 Headache 3:15p Lucia Cortez MD RD Office Visit 10/28/2015 Ivon Williamson, B37.3 Candidiasis of 10:30a Lucia Cortez MD vulva and vagina RD R51 Headache R53.83 Other fatigue Plan of Treatment Future Appointment(s):03/24/2020 4:30 pm - Sapna Lee PNP-BC, MANAGER [employer], Ibclc at [facility]
[2019-03-30 15:33] VITALS: BP 109/64
--- NOTE | 2019-03-30 15:35 | UC ---
Ear Complaint HPI - HPI Summary HPI Summary: 33-year-old female who had a dental extraction of tooth #20 the left lower jaw on Monday of this past week. She complains of left ear pain and mild pain with the tooth was pulled. She denies any fever or chills. She said yesterday she felt slightly dizzy however that has resolved. - History of Current Complaint Chief Complaint: UCEar Stated Complaint: LT EAR COMPLAINT,DENTAL COMPLAINT Time Seen by Provider: 03/30/19 15:20 Hx Obtained From: Patient Hx Last Menstrual Period: 03/04/19 ?: No Onset/Duration: Gradual Onset Severity Initially: Mild Severity Currently: Moderate Pain Intensity: 7 Aggravating Factors: Nothing Alleviating Factors: Nothing Associated Signs/Symptoms: Positive: Hearing Loss - Patient states area in her left ear is less and she has a feeling of her ear being plugged. - Allergies/Home Medications Allergies/Adverse Reactions: Allergies Allergy/AdvReac Type Severity Reaction Status Date / Time nitrofurantoin Allergy Shortness Verified 03/30/19 15:34 [From Macrobid] of Breath Home Medications: Home Medications Sertraline HCl [Zoloft] 75 mg PO DAILY 03/30/19 [History Confirmed 03/30/19] PMH/Surg Hx/FS Hx/Imm Hx Previously Healthy: Yes Psychological History: Depression - Surgical History Surgical History: Yes Surgery Procedure, Year, and Place: tonsils and adenoid at age 13. C- section with tubal - Family History Known Family History: Positive: Hypertension - Social History Alcohol Use: Occasionally Substance Use Type: None Smoking Status (MU): Never Smoked Tobacco Review of Systems All Other Systems Reviewed And Are Negative: Yes ENT: Positive: Dental Pain - Mild left lower jaw pain where tooth #20 was extracted., Ear Ache - Mild left earache but a feeling of her ear being plugged. Is Patient Immunocompromised?: No Physical Exam Triage Information Reviewed: Yes Appearance: Well-Appearing, No Pain Distress, Well-Nourished Vital Signs: Initial Vital Signs Temp 97.6 F 03/30/19 15:27 Pulse 74 03/30/19 15:27 Resp 16 03/30/19 15:27 BP 109/64 03/30/19 15:27 Pulse Ox 100 03/30/19 15:27 Vital Signs Reviewed: Yes Eyes: Positive: Conjunctiva Clear ENT: Positive: Hearing grossly normal, Pharynx normal, TMs normal, Uvula midline Dental: Positive: Other: - The gumline around tooth #20 that was extracted is pink, minimally swollen, no exudate. The area where the tooth was extracted does not completely closed. Neck: Positive: Supple, Nontender, No Lymphadenopathy Respiratory Exam: Normal Respiratory: Positive: Lungs clear, Normal breath sounds, No respiratory distress, No accessory muscle use Cardiovascular: Positive: RRR, No Murmur, Pulses Normal, Brisk Capillary Refill Musculoskeletal Exam: Normal Neurological Exam: Normal Psychological Exam: Normal Skin: Positive: Other Images Dental: 1 - Extracted tooth Ear Complaint Course/Dx - Course Course Of Treatment: The patient can alternate Tylenol every 4 hours with Motrin every 8 hours for pain. I did give her 10 tablets of Percocet and advised note drinking alcohol, no driving while taking that and also not to take it within 4 hours of Tylenol since it contains Tylenol. She is to call her dentist on Monday for recheck of what I believe is possibly dry socket. - Differential Dx/Diagnosis Provider Diagnosis: Dry tooth socket Discharge - Sign-Out/Discharge Documenting (check all that apply): Patient Departure All imaging exams completed and their final reports reviewed: No Studies - Discharge Plan Condition: Fair Disposition: HOME Prescriptions: Oxycodone HCl/Acetaminophen [Percocet] 1 tab PO Q4H PRN #10 tab MDD 6 PRN Reason: Severe Pain Patient Education Materials: Dry Socket (ED) Referrals: Sapna Lee NP [Primary Care Provider] - Additional Instructions: Follow up with your dentist first thing Monday morning to be seen. May alternate Tylenol every 4 hours with Motrin everey 8 hours for pain. Do not take the Percocet within 4 hours of the Tylenol because it contains Tylenol. - Billing Disposition and Condition Condition: FAIR Disposition: Home - Attestation Statements Provider Attestation: This patient was not seen by me. I was available for consult. RENAN
== END 2019-03-30 16:02 | disposition home or self-care (01) ==
LOC: UCCORT 15:19
DX: M27.3 Alveolitis of jaws (principal); Z98.890 Other specified postprocedural states; Z88.1 Allergy status to other antibiotic agents; F32.9 Major depressive disorder, single episode, unspecified
CPT/HCPCS: 99212; G0463

== ENCOUNTER 2019-08-23 14:35 | Emergency (ER) | payer BC ==
--- NOTE | 2019-08-23 16:19 | UC ---
Abdominal Pain Female HPI - HPI Summary HPI Summary: Patient is a 33yo female presenting with concern for possible UTI or kidney stone. Patient states that she has R flank pain that radiates to R side of abdomen and toward groin for the past several days. Patient states it feel like a "dull aching pain, not excruciating or intolerable." Patient denies aggravating and alleviating factors. States it comes and goes randomly. Notes frequency with urination. Denies dysuria, burning, hematuria. Denies trauma or injury to back. She does note intermittent nausea the past two days but none currently. Denies vomiting, abdominal pain, diarrhea, constipation. Denies decreased appetite. Denies decreased fluid intake. Patient adds she did not get her period at the beginning of this month as she was supposed to. States this is abnormal, as she is always regular. She states she followed up with her OBGYN who took blood work. Patient states "hormone levels normal and negative ." She notes tubal ligation in 2014. Notes h/o kidney stones requiring hospitalization "a few years back." She states her symptoms are similar to her past kidney stones and she "doesnt want to wait until it gets bad." - History of Current Complaint Chief Complaint: UCGU Stated Complaint: URINARY COMPLAINT Hx Obtained From: Patient Hx Last Menstrual Period: 03/04/19 Onset/Duration: Gradual Onset, Lasting Weeks Severity Currently: Mild Pain Intensity: 3 Pain Scale Used: 0-10 Numeric Allergies/Adverse Reactions: Allergies Allergy/AdvReac Type Severity Reaction Status Date / Time duloxetine [From Cymbalta] Allergy Anxiety Verified 08/23/19 15:35 nitrofurantoin Allergy Shortness Verified 08/23/19 15:34 [From Macrobid] of Breath Home Medications: Home Medications Fexofenadine/Pseudoephedrine [Summer-D 24 Hour Tablet] 1 each PO DAILY [History Confirmed 08/23/19] PMH/Surg Hx/FS Hx/Imm Hx GI/ History: Kidney Stones - Surgical History Surgical History: Yes Surgery Procedure, Year, and Place: tonsils and adenoid at age 13. C- section with tubal - Family History Known Family History: Positive: Hypertension - Social History Alcohol Use: Occasionally Substance Use Type: None Smoking Status (MU): Never Smoked Tobacco Review of Systems All Other Systems Reviewed And Are Negative: Yes Constitutional: Positive: Negative. Negative: Fever, Chills ENT: Positive: Negative Respiratory: Positive: Negative Cardiovascular: Positive: Negative Gastrointestinal: Positive: Abdominal Pain - flank pain radiating to RLQ and pelvic region, Nausea - x2 days intermittent. Negative: Vomiting, Diarrhea Genitourinary: Positive: Negative, Frequency, Other - missed LMP at the beginning of this month Musculoskeletal: Positive: Negative Neurological: Positive: Negative Physical Exam Triage Information Reviewed: Yes Appearance: Well-Appearing, No Pain Distress, Well-Nourished Vital Signs: Initial Vital Signs Temp 99.3 F 08/23/19 15:26 Pulse 72 08/23/19 15:26 Resp 18 08/23/19 15:26 BP 113/75 08/23/19 15:26 Pulse Ox 100 08/23/19 15:26 Lab Results 08/23/19 08/23/19 Range/Units 16:03 16:05 POC Urine Color Yellow POC Urine Clarity Clear POC Urine pH 6.0 (5-9) POC Ur Specif [place] 1.015 (1.010-1.030) POC Urine Protein Negative (Negative) POC Ur Glucose (UA) Negative (Negative) POC Urine Ketones Negative (Negative) POC Urine Blood Negative (Negative) POC Urine Nitrite Negative (Negative) POC Urine Bilirubin Negative (Negative) POC Urine Urobilinogen 0.2 (Negative) POC U Leukocyte Esteras Negative (Negative) POC Ur Test Negative (Negative) Vital Signs Reviewed: Yes Eyes: Positive: Conjunctiva Clear ENT: Positive: Hearing grossly normal Neck: Positive: Supple Respiratory Exam: Normal Respiratory: Positive: Lungs clear, Normal breath sounds, No respiratory distress Cardiovascular Exam: Normal Cardiovascular: Positive: RRR Abdomen Description: Positive: No Organomegaly, Soft, CVA Tenderness (R). Negative: Nontender - tenderness to palpation of RLQ and R pelvic tenderness, CVA Tenderness (L), Distended, Guarding, McBurney's Point Tenderness Bowel Sounds: Positive: Present Neurological: Positive: Alert Psychological: Positive: Age Appropriate Behavior Skin Exam: Normal - no erythema or ecchymosis Diagnostics - Radiology CT abd/pel wo Radiology Interpretation Completed By: Radiologist Summary of Radiographic Findings: IMPRESSION: 1. THERE IS NO HYDRONEPHROSIS. A 2 MM CALCIFICATION IN CLOSE PROXIMITY TO THE DISTAL RIGHT URETER IS VERY LIKELY TO BE A PHLEBOLITH. IF PAIN PERSISTS, AN ULTRASOUND COULD BE PERFORMED TO SCREEN FOR URETERAL JETS AND EVALUATE THE UVJ. 2. 2 MM NONOBSTRUCTIVE CALCULUS IN THE INFERIOR POLE THE LEFT KIDNEY. 3. BILATERAL ADNEXAL CYSTS (UP TO 3.1 CM ON THE RIGHT) ARE INCOMPLETELY EVALUATED BY CT. Abd Pain Female Course/Dx - Course Course Of Treatment: Negative UA and urine . Discussed CT findings with patient. Informed her that ovarian torsion cannot be ruled out as a source of her pain. The calculus in R ureter also needs further evaluation if causing persistent pain. Discussed need for ultrasound with patient and that ideally should would go to the emergency room straight from here to receive it. Patient agreed with suggestion and stated she would go straight to ED after leaving the clinic. Instructed to also follow up with pcp and obgyn as soon as possible to discuss findings. Patient with normal VS and in no pain distress upon departure. - Differential Dx/Diagnosis Differential Diagnosis: Ovarian Cyst, Renal Colic, Other - ovarian torsion Provider Diagnosis: Right flank pain, RLQ abdominal tenderness Discharge ED - Sign-Out/Discharge Documenting (check all that apply): Patient Departure All imaging exams completed and their final reports reviewed: Yes - Discharge Plan Condition: Stable Disposition: HOME Patient Education Materials: Pelvic Pain in Women (ED), Flank Pain (ED) Referrals: Sapna Lee NP [Primary Care Provider] - If Needed Additional Instructions: As discussed, your CT scan revealed a calcification in your right ureter and bilateral adnexal cysts. With these findings, it is strongly recommended that you receive further evaluation with an ultrasound. It is recommended that your go to the emergency room upon leaving here. Be sure to give them the copy of your CT results. It is important that you also follow up with your primary care provider and OBGYN as soon as possible to discuss findings here and findings at the emergency room tonight. - Billing Disposition and Condition Condition: STABLE Disposition: Home
[2019-08-23 17:45] VITALS: BP 120/68
== END 2019-08-23 18:59 | disposition home or self-care (01) ==
LOC: UCCORT 14:35
DX: R10.813 Right lower quadrant abdominal tenderness (principal); R10.9 Unspecified abdominal pain; N20.2 Calculus of kidney with calculus of ureter; N83.8 Other noninflammatory disorders of ovary, fallopian tube and broad ligament; Z88.1 Allergy status to other antibiotic agents; Z88.8 Allergy status to other drugs, medicaments and biological substances
CPT/HCPCS: 74176; 81003; 84702; 99212; G0463